=== PATIENT | female | born 1970 | race Caucasian/White ===

== ENCOUNTER 2016-08-23 11:49 | Emergency (ER) | payer OTHER ==
[~2016-08-23] VITALS: Wt 56.8 kg
--- NOTE | 2016-08-23 13:01 | RADRPT ---
PROCEDURE: Chest x-ray CLINICAL INDICATION: Sepsis TECHNIQUE: Chest single view COMPARISON: None FINDINGS: The heart is normal in size. The pulmonary vessels are normal in caliber. There is mild reticular s carring in the lung bases. Lungs otherwise clear. The costophrenic angles are sharp. The visualiz ed bony thorax is unremarkable. IMPRESSION: No acute cardiopulmonary disease. RPTAT: HH .Ajay Perez MD, MD Date Time Electronically viewed and signed by .Ajay Perez MD, on 08/23/2016 13:00 .W/
[2016-08-23 13:04] LABS: ADD SCAN DIFF NO
[2016-08-23 13:06] LABS: BASOPHILS % 0.3 % (0.0-2.0); EOSINOPHILS # 0.1 10^3/ul (0.0-0.5); EOSINOPHILS % 0.4 % (0.0-7.0); HEMATOCRIT 36.6 % (37.0-47.0); HEMOGLOBIN 12.5 g/dl (12.0-16.0); LYMPHOCYTES # 1.4 10^3/ul (0.8-2.9); LYMPHOCYTES % 10.4 % (15.0-51.0); MEAN CORPUSCULAR HEMOGLOBIN 32.4 pg (29.0-33.0); MEAN CORPUSCULAR HGB CONC 34.2 g/dl (32.0-37.0); MEAN CORPUSCULAR VOLUME 94.8 fl (82.0-101.0); MEAN PLATELET VOLUME 10.1 fl (7.4-10.4); MONOCYTE # 0.8 10^3/ul (0.3-0.9); MONOCYTES % 5.7 % (0.0-11.0); NEUTROPHIL # 11.3 10^3/ul (1.6-7.5); NEUTROPHILS % 82.7 % (39.0-77.0); PLATELET COUNT 265 10^3/UL (140-415); RED BLOOD COUNT 3.86 10^6/ul (4.20-5.40); WHITE BLOOD COUNT 13.7 10^3/ul (4.8-10.8)
--- NOTE | 2016-08-23 13:12 | RADRPT ---
PROCEDURE: CT brain without contrast CLINICAL INDICATION: Head pain TECHNIQUE: CT of the brain without contrast was performed on a multidetector CT scanner, with multi planar reformats. One or more of the following dose reduction techniques were used: Automated expos ure control, adjustment in mA and / or kV according to patient size, use of iterative reconstructive technique. CTDIvol = 38 mGy; DLP = 555 mGy-cm. COMPARISON: None available FINDINGS: No acute intracranial hemorrhage is identified. No extra-axial fluid collection is seen. There is no mass effect. No midline shift is identified. Ventricles and sulci are within normal limits for size and configuration. The density of the brain is within normal limits. Brian-white differentiation is preserved. Osseous structures are unremarkable. Mastoid air cells and imaged paranasal sinuses grossly clear. IMPRESSION: Unremarkable noncontrast CT of the brain. RPTAT: VV .Mingo Sanchez MD, Date Time Electronically viewed and signed by .Mingo Sanchez MD, on 08/23/2016 13:11 .O/
[2016-08-23 13:20] LABS: POTASSIUM 4.4 mmol/L (3.5-5.1)
[2016-08-23 13:22] LABS: CREATININE 0.72 mg/dl (0.44-1.00)
[2016-08-23 13:23] LABS: ALBUMIN/GLOBULIN RATIO 1.29; BILIRUBIN,INDIRECT 0.4 mg/dl (0-1.1); BILIRUBIN,TOTAL 0.4 mg/dl (0.2-1.3); TOTAL PROTEIN 7.1 g/dl (6.1-8.1)
[2016-08-23] MEDS ORDERED: AZIT250T94 PO (13:23)
[2016-08-23 13:24] LABS: CALCIUM 9.2 mg/dl (8.4-10.2)
[2016-08-23] MEDS ORDERED: OSLT75C PO (13:24)
[2016-08-23] MEDS ORDERED: UDROBDM PO (13:24)
--- NOTE | 2016-08-23 13:30 | ERD ---
ER Documentation Chief Complaint Date/Time DATE: 08/23/16 TIME: 1220 Chief Complaint non traumatic headache with no neuro deficit. no trauma ntoed. HPI 46-year-old female referred to the emergency department by her primary care doctor for evaluation of a headache. Patient states she was in her usual state of health until over the last few weeks which time she had URI symptoms and a nonproductive cough. She has had no shortness of breath or significant chest pain but she has continued to have fevers chills but no weight loss or hemoptysis. Recently, she has been complaining of a headache at the top of her head every time she coughs. She states "I feel like my head is going to pop." She reports no focal weakness numbness or aphasia. She was seen by her primary care doctor and referred to the emergency department for further evaluation. Currently, she reports the pain is a 9/10 when it happens but she is comfortable in the emergency department requesting a pain medication. ROS All systems reviewed and are negative except as per history of present illness. Medications Home Meds Active Scripts Oseltamivir Phosphate* (Tamiflu*) 75 Mg Capsule, 75 MG PO BID for 5 Days, #10 CAP Prov:RAZA VIDES 08/23/16 Guaifenesin-Dextromethorphan* (Robitussin* DM) 100MG/10MG/5ML Syrup, 10 ML PO Q6H Y for COUGH, #14 ML Prov:RAZA VIDES 08/23/16 Azithromycin* (Zithromax*) 250 Mg Tablet, 250 MG PO .ZPACK DIRECTED, #6 TAB TAKE 500 MG (2 TABS) THE FIRST DAY THEN 250 MG (1 TAB) DAYS 2-5 Prov:RAZA VIDES 08/23/16 PMhx/Soc History of Surgery: Yes (TONSILLECTOMY, CARPAL TUNNEL, TOE SX) Hx Alcohol Use: No Hx Substance Use: No Hx Tobacco Use: No Smoking Status: Never smoker FmHx Noncontributory for chief complaint Physical Exam Vitals Vital Signs Date Time Temp Pulse Resp B/P Pulse Ox O2 Delivery O2 Flow Rate FiO2 08/23/16 11:51 98.5 89 20 146/76 98 Physical Exam GENERAL: The patient is well developed and appropriate for usual state of health in no apparent distress HEENT: Pupils equal, round, and reactive to light. EOMI. There is no scleral icterus. NECK: C-spine is soft and supple, there is no meningismus. There is no cervical lymphadenopathy. LUNGS: Clear to auscultation bilaterally. There are no rales, wheezes or rhonchi. HEART: Regular rate and rhythm, no murmurs, clicks, rubs or gallops. ABDOMEN: Soft, non-tender, non-distended. There are bowel sounds in all four quadrants. No rebound or guarding. EXTREMITIES: There is no peripheral cyanosis or edema. No focal swelling or erythema. NEURO: The patient moves all four extremities with 5/5 strength. Cranial nerves II - XII are intact. Normal gait. Alert and oriented SKIN: There is no apparent rash or petechiae. HEME/LYMPHATIC: There is no evidence of excessive bruising or lymphedema. PSYCHIATRIC: The patient does not appear anxious or depressed. Result Diagram: 08/23/16 1245 08/23/16 1245 Results 24 hrs Laboratory Tests Test 08/23/16 12:45 Alanine Aminotransferase (ALT/SGPT) 32IU/L Albumin 4.0g/dl Albumin/Globulin Ratio 1.29 Alkaline Phosphatase 89IU/L Anion Gap 17 Aspartate Amino Transf (AST/SGOT) 22IU/L Basophils # 0.010^3/ul Basophils % 0.3% Blood Urea Nitrogen 7mg/dl Calcium Level 9.2mg/dl Carbon Dioxide Level 28mmol/L Chloride Level 100mmol/L Creatinine 0.72mg/dl Direct Bilirubin 0.00mg/dl Eosinophils # 0.110^3/ul Eosinophils % 0.4% Globulin 3.10g/dl Glucose Level 93mg/dl Hematocrit 36.6% Hemoglobin 12.5g/dl Indirect Bilirubin 0.4mg/dl Lymphocytes # 1.410^3/ul Lymphocytes % 10.4% Mean Corpuscular Hemoglobin 32.4pg Mean Corpuscular Hemoglobin Concent 34.2g/dl Mean Corpuscular Volume 94.8fl Mean Platelet Volume 10.1fl Monocytes # 0.810^3/ul Monocytes % 5.7% Neutrophils # 11.310^3/ul Neutrophils % 82.7% Nucleated Red Blood Cells # 0.010^3/ul Nucleated Red Blood Cells % 0.0/100WBC Platelet Count 84591^3/UL Potassium Level 4.4mmol/L Red Blood Count 3.8610^6/ul Red Cell Distribution Width 12.0% Sodium Level 141mmol/L Total Bilirubin 0.4mg/dl Total Protein 7.1g/dl White Blood Count 13.710^3/ul Procedures/MDM Patient was taken to a room, seen and evaluated. Comfort measures were initiated. Diagnostic tests were ordered and reviewed. RADIOLOGY: reviewed with the radiologist CONSULTATION: I coordinated care with the patient's primary care doctor REEVALUATION: Patient remained nontoxic in appearance. MEDICAL DECISION MAKING: This is a 46-year-old female presents the emergency department with what appears to be a bronchitis. At this time, patient shows no evidence of respiratory distress or definitive pneumonia. She does not appear to be septic or toxic. From the standpoint of her headache, her CAT scan does not show any significant bleed or intracranial abnormalities. Patient is clinically appropriate for outpatient care. Departure Diagnosis: Primary Impression: Headache Additional Impression: Bronchitis Condition: Stable Patient Instructions: Self-Care for Headaches Additional Instructions: Please follow up with Dr. Dai this week if not improving. Return for any problems or concerns RAZA VIDES Aug 23, 2016 13:30
[2016-08-23 13:51] VITALS: BP 125/79; PULSE 74; RESP 18; TEMP 97.9
== END 2016-08-23 13:55 | disposition home or self-care (01) ==
LOC: E/R 11:49
DX: R51 Headache (principal); J20.9 Acute bronchitis, unspecified; R40.2142 Coma scale, eyes open, spontaneous, at arrival to emergency department; R40.2252 Coma scale, best verbal response, oriented, at arrival to emergency department; R40.2362 Coma scale, best motor response, obeys commands, at arrival to emergency department
CPT/HCPCS: 36415; 70450; 71010; 80053; 85025; 87040